=== PATIENT | female | born 1965 | race Caucasian/White ===

== ENCOUNTER 2020-11-12 11:50 | Day surgery (SDC) | payer BC, SELFPAY ==
[2020-11-12] VITALS (17 sets, daily range): BP systolic 121–165; BP diastolic 70–93; PULSE 74–92; RESP 14–19; TEMP 36.7–36.9; O2SAT 93–100; BMI 36.8
--- NOTE | 2020-11-12 | IR_ITS ---
APPROVED REPORT Patient Location: Inpatient PROCEDURES Selective coronary angiogram Left heart catheterization Left ventriculogram Bilateral selective renal angiogram INDICATION Unstable angina, Malignant hypertension, Suspected renovascular hypertension Informed consent was obtained prior to the procedure. COMPLICATIONS NONE Estimated Blood Loss: LESS THAN 10 ML TECHNIQUE One percent lidocaine used to anesthetize the right anterior aspect of the wrist. The right radial artery was accessed via the Seldinger technique. A 6 [place] sheath was placed in the right radial artery. 2.5 mg of verapamil, 800 mcg of nitroglycerin, 1mg Lidocaine and 5000 U Heparin were given through the arterial sheath. The trap catheter was also used to perform left heart catheterization, left ventriculogram and selective coronary angiogram. The trap catheter was then used to selectively engage each renal artery and perform selective angiography. This was undertaken given patient's malignant hypertension with systolic blood pressures over 210/120 ANGIOGRAPHIC RESULTS The left main artery Normal The left anterior descending artery Normal The circumflex artery Normal The right coronary artery Dominant normal The GIANG ventriculogram reveals Not performed The left ventricular end-diastolic pressure Not measured Right renal artery singular normal Left renal artery singular normal IMPRESSION Normal coronary arteries Normal bilateral renal arteries PLAN 1. Recommend evaluation of malignant hypertension with tachycardia. Given patient's chronic anemia would recommend evaluation for neuroendocrine tumors causing secondary hypertension with tachycardia. 2. Start or increase beta-blockers in order to control heart rate and blood pressure Electronically signed by : Froy Spencer, 11/12/2020 15:04:35
--- NOTE | 2020-11-12 11:39 | ECG_ITS ---
APPROVED REPORT Exam: Resting ECG HR:86 bpm ECG Measurements Heart Rate 86 AXES NM 164 P 66 QRSd 84 QRS 32 QT 368 T 51 QTc 440 Conclusion Normal sinus rhythm Normal ECG Electronically signed by : Yousif Chun, 11/12/2020 19:36:17
--- NOTE | 2020-11-12 11:54 | XR_ITS ---
PROCEDURE: XR CHEST PORTABLE CLINICAL HISTORY: chest pain COMPARISON: No exams were available for comparison FINDINGS: The cardiomediastinal silhouette and pulmonary vascularity are within normal limits. The lungs are clear without infiltrates, suspicious nodules, or pleural effusions. No acute bony abnormalities. IMPRESSION: No acute findings. Dictated by: Leland Aguirre MD 11/12/2020 12:32 Leland Aguirre MD in [place] 11/12/2020 12:32
--- NOTE | 2020-11-12 11:55 | PC.NURSE ---
pt took 324mg of ASA just prior to coming to ER
--- NOTE | 2020-11-12 12:00 | PC.NURSE ---
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
[2020-11-12 12:09] LABS: Eosinophils # 0.2 K/mm3 (0.0-0.4); Mean Corpuscular Volume 72.2 fl (81-99); Monocytes # 0.5 K/mm3 (0.1-1.0)
[2020-11-12 12:10] LABS: Chloride 108 mmol/L (98-107); Sodium 141 mmol/L (136-145)
[2020-11-12 12:11] LABS: Basophils % 0.4 % (0.1-2.0); Eosinophils % 2.1 % (0.1-12.0); Hemoglobin 8.8 g/dL (12.2-16.2); Lymphocytes # 2.3 K/mm3 (0.7-4.5); Mean Corpuscular HGB Conc 28.5 g/dL (31.8-35.4); Mean Corpuscular Hemoglobin 20.6 pg (27.0-31.2); Mean Platelet Volume 11.8 fl (7.4-10.4); Monocytes % 5.5 % (1.7-9.3); Neutrophils # 5.3 K/mm3 (1.8-7.8); Platelet Count 541 K/mm3 (142-424); Red Blood Count 4.29 M/mm3 (4.20-5.40); Red Cell Distribution Width 17.7 % (11.5-17.5); White Blood Count 8.3 K/mm3 (4.8-10.8)
[2020-11-12 12:13] LABS: Blood Urea Nitrogen 19 mg/dl (7-17); Creatinine Clearance Estimated 105 mL/min (50-200); Estimated Glomerular Filt Rate 65 ml/min (>60); GFR (African American) 79 ML/MIN (>60)
[2020-11-12 12:14] LABS: Calcium 9.3 mg/dl (8.4-10.2); Carbon Dioxide 25 mmol/L (22.0-30.0); Glucose 87 mg/dl (74-100)
[2020-11-12 12:25] LABS: Anion Gap 11.9 mEq/L (5-15); Potassium 3.9 mmoL/L (3.5-5.1)
[2020-11-12 12:27] LABS: Troponin I < 0.01 ng/ml (0.00-0.034)
--- NOTE | 2020-11-12 12:30 | PC.NURSE ---
Spoke with Eliceo Salazar in cardiology. Advises he will be over to see patient
[2020-11-12 12:31] LABS: NT Pro Brain Natriuretic Pep. 112 pg/mL (0-125)
--- NOTE | 2020-11-12 12:33 | PC.NURSE ---
Eliceo Salazar at bedside.
[2020-11-12 12:34] LABS: Coronavirus 19 IgG Antibody Negative (Negative); Coronavirus 19 IgM Antibody Negative (Negative)
[2020-11-12 12:37] LABS: Activated Partial Thrombo Time 22.2 seconds (23.6-34.0); Prothrombin Time 11.1 seconds (9.4-11.8)
--- NOTE | 2020-11-12 12:51 | HMH.CNCARD ---
History of Present Illness Consult date: 11/12/20 Consult reason: chest pain Chief complaint: CP Additional Medical History:: 1. Chronic anemia with history of EGD and colonoscopy, 09/2019, showing no etiology. A. Chronic iron therapy 2. Strong family history of early coronary disease in her mother, mother sister, and her brother in their 50s and 60s 3. Hypertension 4. History of gastric bypass, 2004 History of present illness: 55-year-old white female with chronic anemia and history of gastric bypass in 2004 with 120 pound weight loss at that time presented to the emergency department for chest pain evaluation. Patient relates 4 to 6 weeks of increasing substernal chest discomfort unrelated to activity or eating. Patient did see her primary care physician with her blood pressure noted to be elevated and an increase in her medications made. Over the last 3 days patient's chest discomfort has increased in frequency, intensity and duration with associated fatigue. She is also noted radiation of symptoms up into her neck. She had an appointment with us tomorrow but due to the change in symptoms she sought evaluation in the ER. Initial troponin is normal and EKG showed is sinus rhythm with no acute ST segment changes. Cardiology consulted for evaluation and recommendations. Patient relates a significant family history of early heart disease in her brother who at age 54, her mother who had bypass at age 60 and her mother's sister who had 2 separate bypasses in her 60s. Patient is a non-smoker and nondiabetic. She has been treated for high blood pressure for many years. Cholesterol status unknown [facility] History *Have you ever received a pneumonia vaccine?: No *Have you received a flu vaccine this season?: No - *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 *Occupational Status:: employed *Travel in the last 8 weeks: Inside the [place] Family Hx:: Coronary Artery Disease Meds Home Medications Medication Instructions Recorded Confirmed Type Aspirin 81 mg PO DAILY 11/12/20 11/12/20 History Cetirizine HCl 10 mg PO DAILY 11/12/20 11/12/20 History Ibuprofen/Famotidine [Duexis 1 tab PO TID 11/12/20 11/12/20 History 800-26.6 mg Tablet] lisinopriL [Lisinopril 30mg Tablet] 30 mg PO DAILY 11/12/20 11/12/20 History Allergies Allergy/AdvReac Type Severity Reaction Status Date / Time codeine Allergy Verified 11/12/20 11:54 Exam Vital signs and Labs for Last 24 Hours: Temp Pulse Resp BP Pulse Ox 98.5 F 90 14 162/75 H 97 11/12/20 11:51 11/12/20 12:20 11/12/20 12:20 11/12/20 12:20 11/12/20 12:20 Laboratory Results - last 24 hr 11/12/20 11:50: WBC 8.3, RBC 4.29, Hgb 8.8 L, Hct 31.0 L, MCV 72.2 L, MCH 20.6 L, MCHC 28.5 L, RDW 17.7 H, Plt Count 541 H, MPV 11.8 H, Neut % (Auto) 64.0, Lymph % (Auto) 28.0, [place] % (Auto) 5.5, Eos % (Auto) 2.1, Baso % (Auto) 0.4, Neut # (Auto) 5.3, Lymph # (Auto) 2.3, [place] # (Auto) 0.5, Eos # (Auto) 0.2, Baso # (Auto) 0.0 11/12/20 11:50: Sodium 141, Potassium 3.9, Chloride 108 H, Carbon Dioxide 25, Anion Gap 11.9, BUN 19 H, Creatinine 0.90, Estimated Creat Clear 105, Estimated GFR 65, Est GFR ( Amer) 79, Glucose 87, Calcium 9.3, Troponin I < 0.01 11/12/20 11:50: SARS-CoV-2 IgG Ab (Rapid) Negative, SARS-CoV-2 IgM Ab (Rapid) Negative 11/12/20 11:50: PT 11.1, INR 1.00, APTT 22.2 L 11/12/20 11:50: NT-Pro-B Natriuret Pep 112 I & O for Last 24 hours: Intake & Output 11/10/20 11/11/20 11/12/20 11/13/20 11:59 11:59 11:59 11:59 Weight 208 lb - Constitutional no acute distress - *Routine HEENT Exam Head: Present: normocephalic Eye: Present: EOMI, PERRL ENT: Present: mucous membranes moist - *Routine Neck Exam Present: supple. Absent: lymphadenopathy - *Routine Respiratory Exam Present: CTA bilaterally - *Routine Cardiovascular Exam Present: RRR - *Routine Abdominal Exam Present: soft, normoactive bowel sounds. Absent: tenderness - *Routine Extremities Exam Absent:
--- NOTE | 2020-11-12 12:56 | PC.NURSE ---
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
--- NOTE | 2020-11-12 13:04 | PC.NURSE ---
after NTG chest pain and back pain went completely away Eliceo quevedo
--- NOTE | 2020-11-12 13:06 | PC.NURSE ---
Spoke with Eliceo, advised pt would be done as outpt procedure.
--- NOTE | 2020-11-12 13:17 | HMH.EDCP ---
ED Disposition Clinical Impression: Unstable angina, Chronic anemia Disposition: Still a Patient Condition on Discharge: Serious - Critical Care Critical Care Time: No Attestation: On 11/12/20, the high probability of a clinically significant, sudden or life threatening deterioration of the following system(s) required my full and direct attention, intervention and personal management. The time I documented below is in addition to time spent performing reported procedures but includes the following listed in this critical care notation. Medical Decision Making - Medical Records Medical records reviewed: Yes: I reviewed the patient's medical records. - Ramiro Inquiry Pt receiving controlled substance: No Vital Signs: 11/12/20 11:50 11/12/20 11:51 11/12/20 12:20 Temperature 98.5 F Temperature Source Oral Pulse Rate [Right] 81 84 90 Respiratory Rate 14 16 14 Blood Pressure [Right Arm] 155/91 H 165/88 H 162/75 H Blood Pressure Mean [Right Arm] 112 113 104 Blood Pressure Source [Right Arm] Automatic Cuff Automatic Cuff Automatic Cuff Blood Pressure Position [Right Arm] Sitting Sitting Sitting 02 Sat by Pulse Oximetry 97 98 97 Oxygen Delivery Method Room Air Room Air 11/12/20 12:58 11/12/20 13:00 Temperature Temperature Source Pulse Rate [Right] 92 H 83 Respiratory Rate 18 18 Blood Pressure [Right Arm] 147/86 H 143/81 H Blood Pressure Mean [Right Arm] 106 101 Blood Pressure Source [Right Arm] Automatic Cuff Automatic Cuff Blood Pressure Position [Right Arm] Supine Sitting 02 Sat by Pulse Oximetry 94 L 96 Oxygen Delivery Method Room Air Room Air - Lab Data Lab Results 11/12/20 11:50: WBC 8.3, RBC 4.29, Hgb 8.8 L, Hct 31.0 L, MCV 72.2 L, MCH 20.6 L, MCHC 28.5 L, RDW 17.7 H, Plt Count 541 H, MPV 11.8 H, Neut % (Auto) 64.0, Lymph % (Auto) 28.0, [place] % (Auto) 5.5, Eos % (Auto) 2.1, Baso % (Auto) 0.4, Neut # (Auto) 5.3, Lymph # (Auto) 2.3, [place] # (Auto) 0.5, Eos # (Auto) 0.2, Baso # (Auto) 0.0 11/12/20 11:50: Sodium 141, Potassium 3.9, Chloride 108 H, Carbon Dioxide 25, Anion Gap 11.9, BUN 19 H, Creatinine 0.90, Estimated Creat Clear 105, Estimated GFR 65, Est GFR ( Amer) 79, Glucose 87, Calcium 9.3, Troponin I < 0.01 11/12/20 11:50: SARS-CoV-2 IgG Ab (Rapid) Negative, SARS-CoV-2 IgM Ab (Rapid) Negative 11/12/20 11:50: PT 11.1, INR 1.00, APTT 22.2 L 11/12/20 11:50: NT-Pro-B Natriuret Pep 112 Result diagrams: 11/12/20 11:50 11/12/20 11:50 Orders (Tests/Meds): ED MEDICATIONS Generic Name Dose Route Start Last Admin Trade Name Freq PRN Reason Stop Dose Admin Fentanyl Citrate 25 mcg 11/12/20 13:06 Fentanyl 250mcg/5ml Vial IV 11/13/20 13:06 Q3MINP PRN Moderate to Severe Pain Fentanyl Citrate 50 mcg 11/12/20 13:06 Fentanyl 250mcg/5ml Vial IV 11/13/20 13:06 Q3MINP PRN Moderate to Severe Pain Flumazenil 0.2 mg 11/12/20 13:06 Flumazenil 0.1mg/Ml 5ml Vial IV 11/12/20 23:00 NEEDED PRN Sedation Midazolam HCl 1 mg 11/12/20 13:06 Midazolam 2mg/2ml Vial IV 11/13/20 13:06 Q3MINP PRN Sedation Midazolam HCl 1 mg 11/12/20 13:06 Midazolam Hcl 1mg/1ml 5ml Vial IV 11/13/20 13:06 Q3MINP PRN Sedation Naloxone HCl 0.4 mg 11/12/20 13:06 Naloxone 0.4mg/Ml Vial IV 11/13/20 13:06 Q5MINP PRN Decreased Respirations Discontinued Medications Generic Name Dose Route Start Last Admin Trade Name Freq PRN Reason Stop Dose Admin Nitroglycerin 0.4 mg 11/12/20 12:48 11/12/20 12:55 Nitroglycerin 0.4mg Sl Tablet SL 11/12/20 12:49 0.4 mg ONCE ONE Administration ORDERS Category Date Time Status Covid-19 IgG/IgM ([facility]) Routine Lab 11/12/20 13:05 Ordered Troponin I Q3H Lab 11/12/20 15:00 Ordered Troponin I Q3H Lab 11/12/20 18:00 Ordered - Radiology Data #1 Image(s): Chest Image Reviewed: Yes I reviewed the patient's radiology results, Yes I discussed the image results w/the ra
--- NOTE | 2020-11-12 13:26 | PC.NURSE ---
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
[2020-11-12 13:42] LABS: Chol/HDL Ratio 4.1 (1-3.5); Cholesterol 239 mg/dl (140-200); HDL Cholesterol 59 mg/dl (40-60); Triglycerides 198 mg/dl (30-150); VLDL Cholesterol 40 mg/dL (0-40)
[2020-11-12 13:53] LABS: Direct LDL Cholesterol 127.04 mg/dL (100-129)
== END 2020-11-12 18:03 | disposition home or self-care (01) ==
LOC: ER 13:09 → CATHLAB 13:12
PROVIDERS: Physician Assistant; Emergency Provider Emergency Medicine; PCP Internal Medicine; Visit Provider Internal Medicine
DX: I25.110 Atherosclerotic heart disease of native coronary artery with unstable angina pectoris (principal); Z82.49 Family history of ischemic heart disease and other diseases of the circulatory system; Z79.899 Other long term (current) drug therapy; I15.0 Renovascular hypertension
CPT/HCPCS: 36252; 71045; 80048; 80061; 83880; 84484; 85025; 85610; 85730; 86328; 93005; 93458; 99152; 99284; C1725; C1769; J1644; Q9967

== ENCOUNTER → 2020-11-14 13:17 | Outpatient (CLI) | payer BC, SELFPAY ==
[2020-11-14 13:45] LABS: Basophils % 0.5 % (0.1-2.0); Eosinophils # 0.2 K/mm3 (0.0-0.4); Eosinophils % 2.8 % (0.1-12.0); Hematocrit 30.9 % (37.0-47.0); Lymphocytes # 2.7 K/mm3 (0.7-4.5); Mean Corpuscular HGB Conc 29.1 g/dL (31.8-35.4); Mean Corpuscular Hemoglobin 20.2 pg (27.0-31.2); Mean Corpuscular Volume 69.6 fl (81-99); Mean Platelet Volume 7.4 fl (7.4-10.4); Monocytes # 0.4 K/mm3 (0.1-1.0); Monocytes % 4.5 % (1.7-9.3); Neutrophils # 5.3 K/mm3 (1.8-7.8); Neutrophils % 61.2 % (37.0-80.0); Platelet Count 544 K/mm3 (142-424); Red Blood Count 4.43 M/mm3 (4.20-5.40); Red Cell Distribution Width 17.7 % (11.5-17.5); White Blood Count 8.7 K/mm3 (4.8-10.8)
[2020-11-14 15:35] LABS: Alanine Aminotransferase 14 U/L (12-78); Albumin Level 4.5 g/dl (3.5-5.0); Albumin/Globulin Ratio 1.3 (1.1-1.8); Alkaline Phosphatase 142 U/L (38-126); Anion Gap 14.1 mEq/L (5-15); Aspartate Amino Transferase 26 U/L (14-36); Bilirubin,Total 0.4 mg/dl (0.2-1.3); Blood Urea Nitrogen 15 mg/dl (7-17); Calcium 9.6 mg/dl (8.4-10.2); Carbon Dioxide 27 mmol/L (22.0-30.0); Chloride 103 mmol/L (98-107); Estimated Glomerular Filt Rate 74 ml/min (>60); GFR (African American) 90 ML/MIN (>60); Globulin 3.4 g/dL (1.3-3.2); Glucose 87 mg/dl (74-100); Iron 20 ug/dL (37-170); Potassium 4.1 mmoL/L (3.5-5.1); Sodium 140 mmol/L (136-145); Total Protein,Serum 7.9 g/dl (6.3-8.2)
[2020-11-14 15:45] LABS: Total Iron Binding Capacity 527 ug/dL (265-497)
[2020-11-14 15:52] LABS: Free Thyroxine Index 3.4 ug/dL (5.93-13.13); T4 (Thyroxine) 10.4 ug/dl (5.53-11.0); Triiodothryronine (T3) Uptake 33 % (23.5-40.5)
[2020-11-14 16:06] LABS: Thyroid Stimulating Hormone 0.99 uIU/mL (0.465-4.68)
[2020-11-14 16:11] LABS: Ferritin 6.19 ng/ml (11.1-264)
[2020-11-14 16:25] LABS: Vitamin B12 272 pg/mL (239-931)
[2020-11-14 16:34] LABS: Activated Partial Thrombo Time 23.3 seconds (23.6-34.0); INR 1.02 (0.9-1.1); Prothrombin Time 11.3 seconds (9.4-11.8)
[2020-11-19 20:07] LABS: Vitamin E Alpha Tocopherol 10.8 mg/L (7.0-25.1)
[2020-11-20 12:05] LABS: Vitamin E Gamma Tocopherol 1.2 mg/L (0.5-5.5)
== END ==
PROVIDERS: Visit Provider Internal Medicine Adolescent Medicine
DX: D50.9 Iron deficiency anemia, unspecified (principal); Z98.84 Bariatric surgery status
CPT/HCPCS: 36415; 80053; 82607; 82728; 83540; 83550; 84436; 84443; 84446; 84479; 84597; 85025; 85610; 85730

== ENCOUNTER → 2020-11-15 11:04 | Outpatient (CLI) | payer BC, SELFPAY ==
[2020-11-27 12:54] LABS: Vitamin K1 0.45 ng/mL (0.13-1.88)
== END ==
PROVIDERS: Visit Provider Internal Medicine Adolescent Medicine
DX: D50.9 Iron deficiency anemia, unspecified (principal); Z98.84 Bariatric surgery status
CPT/HCPCS: 84597

== ENCOUNTER → 2020-11-29 11:17 | Outpatient (CLI) | payer BC, SELFPAY ==
--- NOTE | 2020-11-29 11:24 | CA_ITS ---
APPROVED REPORT EXAM: Comprehensive 2D, Doppler, and color-flow Echocardiogram Unemployment Benefits Claims Taker: Loyda Hendrickson RVT Ht: 5 ft 3 in Wt: 215lbs BSA: 1.99 BP: 165/98 mmHg Indications: SOA,CP,HTN 2D Dimensions LVOT 1.94 cm (M/F) 1.5-2.5 M-Mode Dimensions RVDd 3.00 cm (0.9-2.6) LA Diam 4.43 cm (1.9-4.0) LVDd 4.58 cm (3.5-5.7) Ao Diam 2.60 cm (2.0-3.7) LVDs 2.79 cm (3.5-5.7) IVSd 0.97 cm (0.6-1.1) PWd 0.72 cm (0.6-1.1) EF (Teich) 69.60% FS 39.10% EDV (Teich) 96.30 mL ESV (Teich) 29.30 mL LV Diastology E Decel Time 227.00 (160-240 msec) E/A Ratio 1.0 MED E' 8.90 (< 7 cm/sec) E'/MED E' Ratio 11.30 (>14) LAT E' 8.30 (<10 cm/sec) E/LAT E' Ratio 12.12 (>14) Mitral Valve MV E Max Denys. 101.00 (40-130 cm/s) MV A Velocity 101.00 (40-130 cm/s) E/A Ratio 0.99 MV Decel. Time 227.00 (160-240 ms) MV PHT 66.00 ms Pulmonary Valve PV Peak Velocity 80.00 (50-150 cm/s) Tricuspid Valve TR P. Velocity 225.00 cm/s Left Ventricle Left atrium is mildly enlarged, left ventricle is normal size, mild concentric left ventricular hypertrophy, visually estimated ejection fraction 55% with no regional wall motion abnormality, grade 1 diastolic dysfunction seen without tissue Doppler evidence of raise left atrial pressure. Right Ventricle Right atrium and right ventricle are mildly enlarged with normal contractility. Aortic Valve Aortic valve is grossly normal, there is no aortic stenosis or aortic insufficiency. Mitral Valve Mitral valve is grossly normal, there is trace mitral regurgitation. Tricuspid Valve Tricuspid valve is grossly normal, there is trace tricuspid regurgitation, tricuspid regurgitation jet velocity is inadequate for calculation of the right ventricular systolic pressure. Pulmonic Valve Pulmonic valve is poorly visualized. Great Vessels Aortic root is normal size. Pericardium No significant pericardial effusion noted. Conclusion 1. Mild biatrial enlargement, normal left ventricular size, mild concentric left ventricular hypertrophy, visually estimated ejection fraction 55% with no regional wall motion abnormality, grade 1 diastolic dysfunction seen without tissue Doppler evidence of raise left atrial pressure. 2. Mildly enlarged right ventricle with normal contractility. 3. Trace mitral and tricuspid regurgitation. 4. No significant pericardial effusion noted. Electronically signed by : Jet Young, 11/30/2020 13:59:18
== END ==
PROVIDERS: PCP Internal Medicine Adolescent Medicine; Visit Provider Urology
DX: I10 Essential (primary) hypertension (principal)
CPT/HCPCS: 93306

== ENCOUNTER → 2021-05-02 09:16 | Outpatient (CLI) | payer BC, SELFPAY | PROVIDERS: PCP Internal Medicine Adolescent Medicine; Visit Provider Internal Medicine Adolescent Medicine | DX: G47.33 Obstructive sleep apnea (adult) (pediatric) (principal); I10 Essential (primary) hypertension; R06.83 Snoring | CPT/HCPCS: G0399 ==

== ENCOUNTER 2021-05-17 14:00 | Outpatient (RCR) | payer BC, SELFPAY | END 2021-05-17 14:05 | disposition home or self-care (01) | LOC: OT 14:00 | PROVIDERS: PCP Internal Medicine Adolescent Medicine; Visit Provider Internal Medicine Adolescent Medicine | DX: M25.512 Pain in left shoulder (principal) | CPT/HCPCS: 97014; 97110; 97140; 97164; 97165; 97530; G0283 ==

== ENCOUNTER → 2021-07-24 09:58 | Outpatient (CLI) | payer BC, SELFPAY | PROVIDERS: PCP Internal Medicine Adolescent Medicine; Visit Provider Nurse Practitioner | DX: Z20.822 Contact with and (suspected) exposure to COVID-19 (principal) | CPT/HCPCS: C9803; U0003; U0005 ==

== ENCOUNTER → 2021-07-29 10:02 | Outpatient (CLI) | payer BC, SELFPAY ==
[2021-07-29 10:14] LABS: Basophils # 0.1 K/mm3 (0-0.2); Basophils % 0.6 % (0.1-2.0); Eosinophils # 0.2 K/mm3 (0.0-0.4); Eosinophils % 2.9 % (0.1-12.0); Hematocrit 38.1 % (37.0-47.0); Hemoglobin 11.6 g/dL (12.2-16.2); Lymphocytes % 26.8 % (10-50); Mean Corpuscular HGB Conc 30.5 g/dL (31.8-35.4); Mean Corpuscular Hemoglobin 25.1 pg (27.0-31.2); Mean Corpuscular Volume 82.3 fl (81-99); Mean Platelet Volume 8.1 fl (7.4-10.4); Monocytes # 0.5 K/mm3 (0.1-1.0); Monocytes % 5.9 % (1.7-9.3); Neutrophils # 4.8 K/mm3 (1.8-7.8); Neutrophils % 63.8 % (37.0-80.0); Platelet Count 469 K/mm3 (142-424); Red Blood Count 4.63 M/mm3 (4.20-5.40); Red Cell Distribution Width 17.2 % (11.5-17.5); White Blood Count 7.5 K/mm3 (4.8-10.8)
[2021-07-29 11:16] LABS: Chloride 107 mmol/L (98-107); Potassium 4.1 mmoL/L (3.5-5.1); Sodium 144 mmol/L (136-145)
[2021-07-29 11:19] LABS: Alanine Aminotransferase 17 U/L (12-78); Albumin Level 3.9 g/dl (3.5-5.0); Albumin/Globulin Ratio 1.3 (1.1-1.8); Alkaline Phosphatase 106 U/L (38-126); Anion Gap 12.1 mEq/L (5-15); Aspartate Amino Transferase 26 U/L (14-36); Blood Urea Nitrogen 13 mg/dl (7-17); Calcium 8.8 mg/dl (8.4-10.2); Carbon Dioxide 29 mmol/L (22.0-30.0); Cholesterol 208 mg/dl (140-200); Estimated Glomerular Filt Rate 104 ml/min (>60); GFR (African American) 126 ML/MIN (>60); Glucose 93 mg/dl (74-100); Total Protein,Serum 6.9 g/dl (6.3-8.2); Triglycerides 143 mg/dl (30-150); VLDL Cholesterol 29 mg/dL (0-40)
[2021-07-29 11:20] LABS: Chol/HDL Ratio 3.6 (1-3.5); HDL Cholesterol 57 mg/dl (40-60)
[2021-07-29 11:24] LABS: Bilirubin,Total 0.1 mg/dl (0.2-1.3)
[2021-07-29 11:30] LABS: Direct LDL Cholesterol 114.78 mg/dL (100-129)
[2021-07-29 11:58] LABS: Hemoglobin A1C 6.1 % (4.0-6.0)
== END ==
PROVIDERS: Visit Provider Internal Medicine Adolescent Medicine
DX: Z00.00 Encounter for general adult medical examination without abnormal findings (principal); I10 Essential (primary) hypertension; D50.9 Iron deficiency anemia, unspecified
CPT/HCPCS: 36415; 80053; 80061; 83036; 85025

== ENCOUNTER → 2021-07-31 09:22 | Outpatient (CLI) | payer BC, SELFPAY | PROVIDERS: PCP Internal Medicine Adolescent Medicine; Visit Provider Nurse Practitioner | DX: Z20.822 Contact with and (suspected) exposure to COVID-19 (principal) | CPT/HCPCS: C9803; U0003; U0005 ==

== ENCOUNTER → 2021-09-02 08:32 | Outpatient (CLI) | payer BC, SELFPAY ==
--- NOTE | 2021-09-02 08:35 | MM_ITS ---
PROCEDURE INFORMATION: Exam: MG Bilateral Screening 3D Mammography Exam date and time: 09/02/2021 8:35 AM Age: 55 years old Clinical indication: Screening mammogram TECHNIQUE: Imaging protocol: Bilateral screening tomosynthesis and 2D mammography including computer-aided detection (CAD) when performed. COMPARISON: 1. MG MAMMO SCREENING DIGITAL TOMOSYNTHESIS BILATERAL W CAD 12/08/2019 10:27 AM 2. MG MAMMO SCREENING DIGITAL TOMOSYNTHESIS BILATERAL W CAD 05/11/2018 9:03 AM FINDINGS: MAMMOGRAPHY: Breast composition: There are scattered areas of fibroglandular density. Mass: None. Architectural distortion: No new or suspicious architectural distortion. Calcifications: No new or suspicious calcifications are present Asymmetric density: No new or suspicious asymmetric density is present Skin thickening: None. Axillary adenopathy: None. IMPRESSION: No mammographic evidence of malignancy. Recommend annual screening mammography unless otherwise clinically indicated. ASSESSMENT: BI-RADS category 1: Negative
== END ==
PROVIDERS: PCP Internal Medicine Adolescent Medicine; Visit Provider Internal Medicine Adolescent Medicine
DX: Z12.31 Encounter for screening mammogram for malignant neoplasm of breast (principal)
CPT/HCPCS: 77063; 77067

== ENCOUNTER → 2022-09-08 12:34 | Outpatient (CLI) | payer BC, SELFPAY ==
--- NOTE | 2022-09-08 12:38 | XR_ITS ---
FINAL REPORT CLINICAL HISTORY: chest pain COMPARISON: 11/12/2018 FINDINGS: 2 views of the chest were obtained . The heart is normal in size. The mediastinum is within normal limits. The lungs are clear. There is no pneumothorax. Osseous structures are unremarkable. IMPRESSION: No acute cardiopulmonary process. Reviewed, Interpreted and Dictated by Christian Talbot MD Transcribed by Betty Walker Authenticated and [facility]
[2022-09-08 13:54] LABS: D-Dimer 0.64 ug/mL (0.0-0.5)
== END ==
PROVIDERS: Nurse Practitioner Family; PCP Internal Medicine Adolescent Medicine; Visit Provider Internal Medicine
DX: R07.89 Other chest pain (principal)
CPT/HCPCS: 36415; 71046; 85378

== ENCOUNTER → 2022-09-16 12:30 | Outpatient (CLI) | payer BC, SELFPAY ==
--- NOTE | 2022-09-16 12:30 | CT_ITS ---
FINAL REPORT TECHNIQUE: Thin section axial CT images were obtained from the lung apices to the upper abdomen. IV contrast was administered. MIP 3-D reformats were obtained. This study was performed with techniques to keep radiation doses as low as reasonably achievable (ALARA). Individualized dose reduction techniques using automated exposure control or adjustment of mA and/or kV according to the patient's size were employed. CLINICAL HISTORY: chest pain FINDINGS: The heart size is normal. There is no adenopathy. There is no filling defect to suggest PE. There is no aortic dissection. There is no pericardial effusion. There is no suspicious infiltrate or nodule. No pleural effusion. Limited images of the upper abdomen demonstrate postoperative changes from gastric bypass. IMPRESSION: No pulmonary embolism or aortic dissection. Reviewed, Interpreted and Dictated by Junior Johnson III, MD Transcribed by Sean Basurto Authenticated and [facility]
[2022-09-16 13:08] LABS: Blood Urea Nitrogen 14 mg/dl (7-17); Estimated Glomerular Filt Rate 74 ml/min (>60); GFR (African American) 90 ML/MIN (>60)
== END ==
PROVIDERS: PCP Internal Medicine Adolescent Medicine; Visit Provider Nurse Practitioner Family
DX: R07.89 Other chest pain (principal); R00.1 Bradycardia, unspecified; I10 Essential (primary) hypertension; R94.31 Abnormal electrocardiogram [ECG] [EKG]; Z82.49 Family history of ischemic heart disease and other diseases of the circulatory system
CPT/HCPCS: 36415; 71275; 82565; 84520; Q9967

== ENCOUNTER 2022-11-15 09:41 | Emergency (ER) | payer BC, SELFPAY ==
[2022-11-15 10:09] VITALS: BP 146/84; PULSE 84; RESP 16; TEMP 36.8; O2SAT 97; BMI 38.9
[2022-11-15 10:18] LABS: UTC Influenza A Antigen Negative (Negative); UTC Influenza B Antigen Negative (Negative)
[2022-11-15 10:25] LABS: Adenovirus,PCR Not Detected (NotDetected); Bordetella Pertussis Not Detected (NotDetected); Chlamydophila Pneumoniae, PCR Not Detected (NotDetected); Coronavirus 19, PCR Not Detected (NotDetected); Coronavirus 229E Not Detected (NotDetected); Coronavirus NL63 Not Detected (NotDetected); Coronavirus OC43 Not Detected (NotDetected); Coronovirus HKU1,PCR Not Detected (NotDetected); Human Metapneumovirus Not Detected (NotDetected); Influenza A, PCR Not Detected (NotDetected); Influenza AH1, 2009 Not Detected (NotDetected); Influenza AH1, PCR Not Detected (NotDetected); Influenza AH3,PCR Not Detected (NotDetected); Influenza B, PCR Not Detected (NotDetected); Mycoplasma Pneumoniae, PCR Not Detected (NotDetected); Parainfluenza 1, PCR Not Detected (NotDetected); Parainfluenza 2, PCR Not Detected (NotDetected); Parainfluenza 3, PCR Not Detected (NotDetected); Parainfluenza 4, PCR Not Detected (NotDetected); Respiratory Syncytial Virus Not Detected (NotDetected)
--- NOTE | 2022-11-15 10:25 | EXP.UTC ---
Discharge Plan Disposition Patient Disposition: Home, Self-Care Condition: Good Prescriptions Prescriptions: No Action mecobalamin (vitamin B12) 10,000 mcg recon soln IM .Q2 weeks ascorbate calcium (vitamin C) 500 mg tablet 500 mg PO DAILY multivitamin with iron [Daily Vitamin with Iron] Tablet 1 tab PO DAILY bisoprolol fumarate 5 mg tablet 5 mg PO DAILY Qty: 90 3RF cetirizine 10 MG tablet 10 mg PO DAILY ibuprofen-famotidine 1 EACH tablet 1 tab PO TID lisinopril 30 mg tablet 40 mg PO DAILY Referrals Follow up/Referrals: Yousif Chun MD [Primary Care Provider] - See instructions Activity Restrictions/Add. Instructions Additional Instructions/Restrictions: No sign of a bacterial infection. Likely viral. Viruses can take 7-14 days to run their course. Nasal saline and bulb syringe or nose Brigid to remove nasal drainage to help with nasal congestion. Hard to eat, drink, sleep with nasal congestion so important to keep this cleaned out. Monitor temp. Tylenol or Motrin as needed for pain or fever Encourage fluids, water, Gatorade, Powerade, Pedialyte if infant/toddler/child Warm salt water gargles Warm fluids Sore throat lozenges Sleep elevated Humidifier/vaporizer Follow-up immediately for new or worsening symptoms or no noticeable improvement over the next 48-72 hours. Clinical Impressions Clinical Impression: Upper respiratory disease Instructions Patient Instructions: DI for Viral Upper Respiratory Infection -- Adult Discharge ED Provider: [place] ([facility])Sheldon [facility] [place] HPI General Stated complaint: Sore throat sneezing cough headache congestion Source of Information: Patient Time Seen by Provider: 11/15/22 10:25 Description of Symptoms (Recalled from Triage Doc. by RN): PT C/O COUGH, CHILLS, BODY ACHES, AND SNEEZING THAT STARTED 3 DAYS AGO HEENT Symptoms (Recalled from RN notes): No Resp Symptoms (Recalled from RN notes): Yes Skin Symptoms (Recalled from RN notes): No MS Symptoms (Recalled from RN notes): No Functional Status (Recalled from RN notes): WNL History of Present Illness Provider Complaint: 57 yr old female presents for chills,cough, body aches and sneezing for three days Related Data Home Medications Medication Instructions Recorded Confirmed cetirizine 10 mg tablet 10 mg PO DAILY Allergy symptoms 11/12/20 07/30/22 ibuprofen 800 mg-famotidine 26.6 1 tab PO TID Pain 11/12/20 07/30/22 mg tablet ascorbate calcium (vitamin C) 500 500 mg PO DAILY 11/26/20 07/30/22 mg tablet lisinopril 30 mg tablet 40 mg PO DAILY blood pressure 11/26/20 07/30/22 mecobalamin (vitamin B12) 10,000 mcg IM .Q2 weeks 11/26/20 07/30/22 mcg solution for injection multivitamin with iron (Daily 1 tab PO DAILY 11/26/20 07/30/22 Vitamin with Iron tablet) Previous Rx's Medication Instructions Recorded bisoprolol fumarate 5 mg tablet 5 mg PO DAILY #90 tabs 08/27/22 Allergies Allergy/AdvReac Type Severity Reaction Status Date / Time codeine Allergy Verified 07/30/22 13:21 Worker's Comp Is this a Worker's Comp case?: No [facility] Disclaimer: The information contained in this section may have been updated after the patient was seen, as this information can be updated by other users. 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
[2022-11-15 10:33] VITALS: BP 146/84; PULSE 84; RESP 16; TEMP 36.8; O2SAT 97
[2022-11-15 12:10] LABS: Rhinovirus/Enterovirus Detected (NotDetected)
== END 2022-11-15 10:37 | disposition home or self-care (01) ==
PROVIDERS: Emergency Provider Nurse Practitioner Family; PCP Internal Medicine Adolescent Medicine
DX: J06.9 Acute upper respiratory infection, unspecified (principal); B97.89 Other viral agents as the cause of diseases classified elsewhere
CPT/HCPCS: 87581; 87632; 87798; 87804; 99212; C9803; G0463; U0003; U0005

== ENCOUNTER → 2023-01-12 08:18 | Outpatient (CLI) | payer BC, SELFPAY ==
--- NOTE | 2023-01-12 08:22 | MM_ITS ---
PROCEDURE INFORMATION: Exam: MG Bilateral Screening 3D Mammography Exam date and time: 01/12/2023 8:17 AM Age: 57 years old Clinical indication: Screening examination TECHNIQUE: Imaging protocol: Bilateral Screening tomosynthesis and 2D mammography including computer-aided detection (CAD) when performed. COMPARISON: 1. MG MM DIG SCREENING MAMM BI W/CAD 09/02/2021 8:40 AM 2. MG MAMMO SCREENING DIGITAL TOMOSYNTHESIS BILATERAL W CAD 12/08/2019 10:27 AM FINDINGS: MAMMOGRAPHY: Breast composition: The breasts are almost entirely fatty. Mass: None. Architectural distortion: None. Calcifications: No suspicious calcifications. Asymmetric density: None. Skin thickening: None. Axillary adenopathy: None. IMPRESSION: No mammographic evidence of malignancy. Annual screening is recommended unless otherwise clinically indicated. ASSESSMENT: BI-RADS Category 1: Negative
== END ==
PROVIDERS: PCP Internal Medicine Adolescent Medicine; Visit Provider Internal Medicine Adolescent Medicine
DX: Z12.31 Encounter for screening mammogram for malignant neoplasm of breast (principal)
CPT/HCPCS: 77063; 77067

== ENCOUNTER → 2023-09-25 08:55 | Outpatient (CLI) | payer BC, SELFPAY | PROVIDERS: PCP Student in an Organized Health Care Education/Training Program; Visit Provider Student in an Organized Health Care Education/Training Program | DX: R82.90 Unspecified abnormal findings in urine (principal); B96.29 Other Escherichia coli [E. coli] as the cause of diseases classified elsewhere | CPT/HCPCS: 87086 ==

== ENCOUNTER 2023-11-23 20:32 | Outpatient (CLI) | payer BC, SELFPAY | END 2023-11-23 23:59 | LOC: LAB.DROPOF 20:32 | PROVIDERS: PCP Student in an Organized Health Care Education/Training Program; Visit Provider Student in an Organized Health Care Education/Training Program | DX: J02.9 Acute pharyngitis, unspecified (principal); R10.9 Unspecified abdominal pain; R05.8 Other specified cough; R09.81 Nasal congestion | CPT/HCPCS: 87635 ==

== ENCOUNTER 2024-01-15 13:54 | Outpatient (CLI) | payer BC, SELFPAY ==
--- NOTE | 2024-01-15 13:58 | MM_ITS ---
PROCEDURE INFORMATION: Exam: MG Bilateral Screening 3D Mammography Exam date and time: 01/15/2024 1:54 PM Age: 58 years old Clinical indication: Screening examination TECHNIQUE: Imaging protocol: Bilateral Screening tomosynthesis and 2D mammography including computer-aided detection (CAD) when performed. COMPARISON: 1. MG MM DIG SCREENING MAMM BI W/CAD 01/12/2023 8:17 AM 2. MG MM DIG SCREENING MAMM BI W/CAD 09/02/2021 8:40 AM FINDINGS: MAMMOGRAPHY: Breast composition: The breasts are almost entirely fatty. Mass: None. Architectural distortion: None. Calcifications: No suspicious calcifications. Asymmetric density: None. Skin thickening: None. Axillary adenopathy: None. IMPRESSION: No mammographic evidence of malignancy. Annual screening is recommended unless otherwise clinically indicated. ASSESSMENT: BI-RADS Category 1: Negative
== END 2024-01-15 23:59 ==
LOC: RAD 13:55
PROVIDERS: PCP Internal Medicine Adolescent Medicine; Visit Provider Internal Medicine Adolescent Medicine
DX: Z12.31 Encounter for screening mammogram for malignant neoplasm of breast (principal)
CPT/HCPCS: 77063; 77067

== ENCOUNTER 2024-01-19 09:30 | Outpatient (CLI) | payer BC, SELFPAY ==
--- NOTE | 2024-01-19 09:31 | XR_ITS ---
FINAL REPORT CLINICAL HISTORY: screening for osteoporosis COMPARISON: None FINDINGS: Using L1-4, the bone mineral density of the spine is 0.954 g/cm2, corresponding to T-score of -0.8 which is consistent with borderline osteopenia. Using the left hip, the bone mineral density of the femoral neck is 0.674 g/cm2, corresponding to a T-score of -1.6, consistent with osteopenia. Using the right hip, the bone mineral density of the femoral neck is 0.674 g/cm2, corresponding to a T-score of -1.6, consistent with osteopenia. FRAX 10 year fracture risk is 0.5% for a hip fracture and 6.9% for a major osteoporotic fracture. NOTE: T-score: Standard deviation compared with peak bone mass of young adult mean. *Following the recommendations of the International Society of Bone densitometry, classification of hip BMD is based on the lower of two T-scores; total hip or femoral neck. IMPRESSION: Diminished bone mineral density consistent with osteopenia. Reviewed, Interpreted and Dictated by Christian Talbot MD Transcribed by Tricia Ibarra Authenticated and [facility]
== END 2024-01-19 23:59 ==
LOC: RAD 09:31
PROVIDERS: PCP Internal Medicine Adolescent Medicine; Visit Provider Obstetrics & Gynecology
DX: N95.1 Menopausal and female climacteric states (principal)
CPT/HCPCS: 77080

== ENCOUNTER 2024-03-22 10:45 | Outpatient (CLI) | payer BC, SELFPAY ==
[2024-03-22 11:51] LABS: 25-OH Vitamin D, Total 31.7 ng/mL (30-100)
== END 2024-03-22 23:59 | disposition home or self-care (01) ==
LOC: LAB 10:46
PROVIDERS: PCP Internal Medicine Adolescent Medicine; Visit Provider Obstetrics & Gynecology
DX: M85.80 Other specified disorders of bone density and structure, unspecified site (principal); Z79.899 Other long term (current) drug therapy
CPT/HCPCS: 36415; 82306

== ENCOUNTER 2024-06-22 11:09 | Outpatient (CLI) | payer BC, SELFPAY ==
[2024-06-22 18:24] LABS: Adenovirus,PCR Not Detected (NotDetected); Bordetella Pertussis Not Detected (NotDetected); Chlamydophila Pneumoniae, PCR Not Detected (NotDetected); Coronavirus 19, PCR Not Detected (NotDetected); Coronavirus 229E Not Detected (NotDetected); Coronavirus NL63 Not Detected (NotDetected); Coronavirus OC43 Not Detected (NotDetected); Coronovirus HKU1,PCR Not Detected (NotDetected); Human Metapneumovirus Not Detected (NotDetected); Influenza A, PCR Not Detected (NotDetected); Influenza AH1, 2009 Not Detected (NotDetected); Influenza AH1, PCR Not Detected (NotDetected); Influenza AH3,PCR Not Detected (NotDetected); Influenza B, PCR Not Detected (NotDetected); Mycoplasma Pneumoniae, PCR Not Detected (NotDetected); Parainfluenza 1, PCR Not Detected (NotDetected); Parainfluenza 2, PCR Not Detected (NotDetected); Parainfluenza 3, PCR Not Detected (NotDetected); Parainfluenza 4, PCR Not Detected (NotDetected); Respiratory Syncytial Virus Not Detected (NotDetected)
[2024-06-22 23:59] LABS: Rhinovirus/Enterovirus Detected (NotDetected)
== END 2024-06-22 23:59 | disposition home or self-care (01) ==
LOC: LAB.DROPOF 06-23 11:10
PROVIDERS: PCP Nurse Practitioner Family; Visit Provider Nurse Practitioner Family
DX: J34.89 Other specified disorders of nose and nasal sinuses (principal)
CPT/HCPCS: 87581; 87632; 87635; 87798

== ENCOUNTER 2024-11-17 18:53 | Emergency (ER) | payer BC, SELFPAY ==
[2024-11-17 19:24] VITALS: BP 171/94; PULSE 94; RESP 20; TEMP 36.8; O2SAT 98; BMI 32.7
--- NOTE | 2024-11-17 19:28 | PC.NURSE ---
No obvious deformity noted Significant swelling to left lateral ankle noted. Leg elevated and ice pack applied
--- NOTE | 2024-11-17 19:30 | PC.NURSE ---
Pt awake alert and oriented Skin pink warm and dry Resp full and easy Speech clear and appropriate. Pedal pulses strong and equal.
--- NOTE | 2024-11-17 19:35 | XR_ITS ---
PROCEDURE INFORMATION: Exam: XR Left Tibia and Fibula Exam date and time: 11/17/2024 7:41 PM Age: 59 years old Clinical indication: Injury or trauma; Fall; Blunt trauma; Lower leg; Left; Additional info: Fall, deformity lateral TECHNIQUE: Imaging protocol: Radiologic exam of the left tibia and fibula. Views: 2 views. COMPARISON: None. FINDINGS: Bones/joints: Nondisplaced oblique fracture of the lateral malleolus. No other fracture. Soft tissues: Lateral ankle soft tissue swelling. IMPRESSION: 1. Nondisplaced oblique fracture of the lateral malleolus. 2. Lateral ankle soft tissue swelling.
--- NOTE | 2024-11-17 19:35 | XR_ITS ---
PROCEDURE INFORMATION: Exam: XR Left Ankle Exam date and time: 11/17/2024 7:41 PM Age: 59 years old Clinical indication: Injury or trauma; Fall; Blunt trauma; Ankle; Left; Additional info: Fall, deformity lateral TECHNIQUE: Imaging protocol: Radiologic exam of the left ankle. Views: 3 or more views. COMPARISON: CR XR FOOT LT MIN 3V 11/17/2024 7:41 PM FINDINGS: Bones/joints: Nondisplaced oblique fracture of the lateral malleolus. No other fracture. Large posterior and plantar surface calcaneal bone spurs. Soft tissues: Lateral soft tissue swelling. IMPRESSION: 1. Nondisplaced oblique fracture of the lateral malleolus. 2. Lateral soft tissue swelling.
--- NOTE | 2024-11-17 19:35 | XR_ITS ---
PROCEDURE INFORMATION: Exam: XR Left Foot Exam date and time: 11/17/2024 7:41 PM Age: 59 years old Clinical indication: Injury or trauma; Fall; Blunt trauma; Foot; Left; Additional info: Fall, dorsal midfoot pain TECHNIQUE: Imaging protocol: Radiologic exam of the left foot. Views: 3 or more views. COMPARISON: CR XR ANKLE LT MIN 3V 11/17/2024 7:41 PM FINDINGS: Bones/joints: No fracture or dislocation. Mild degenerative change at the 1st metatarsophalangeal joint. Posterior and plantar surface calcaneal bone spurs. Soft tissues: Normal. IMPRESSION: No evidence of a fracture in the foot.
[2024-11-17] MEDS: HYDROMORPHONE 2MG/ML SYRINGE 0.5 MG IV (19:45)
[2024-11-17] MEDS: KETOROLAC 30MG/ML VIAL 15 MG IV (19:46)
[2024-11-17] MEDS: ONDANSETRON 4MG/2ML VIAL 4 MG IV (19:46)
--- NOTE | 2024-11-17 20:23 | HMH.EDGENADL ---
Discharge Plan Disposition Patient Disposition: Home, Self-Care Prescriptions Prescriptions: New hydrocodone-acetaminophen 5-325 mg tablet 1 tab PO Q6H PRN (Reason: pain) Qty: 10 0RF ondansetron 4 mg tablet,disintegrating 4 mg PO Q6H PRN (Reason: nausea and vomiting) Qty: 10 0RF No Action lisinopril 40 mg tablet 40 mg PO DAILY Qty: 90 3RF Ozempic 1 mg/dose (4 mg/3 mL) pen injector SQ Patient Comments: INJECT 1 MG SUBCUTANEOUSLY ONCE WEEKLY bisoprolol fumarate 5 mg tablet 5 mg PO DAILY Patient Comments: TAKE ONE TABLET BY MOUTH EVERY DAY cyanocobalamin (vitamin B-12) 1,000 mcg/mL solution 1,000 mcg IM WEEKLY Patient Comments: INJECT 1 ML intramuscularly ONCE WEEKLY DIRECTED (DME) BD Luer-Yo Syringe 3 mL 25 gauge x 1 syringe See Rx Instructions .ROUTE .MEDSUPPLY Qty: 1 Patient Comments: USE DIRECTED FOR b12 injections Rx Instructions: As directed cholecalciferol (vitamin D3) 25 mcg (1,000 unit) capsule 25 mcg PO DAILY Qty: 30 6RF Citracal-D3 Plus Magnesium 250-40-125 mg-mg-unit tablet 2 tab PO DAILY Qty: 60 6RF ascorbate calcium (vitamin C) 500 mg tablet 500 mg PO DAILY multivitamin with iron [Daily Vitamin with Iron] Tablet 1 tab PO DAILY cetirizine 10 MG tablet 10 mg PO DAILY Referrals Follow up/Referrals: Kar Emerson DO [Staff Physician] - See instructions Yousif Chun MD [Primary Care Provider] - See instructions Activity Restrictions/Add. Instructions Additional Instructions/Restrictions: Call your family doctor to establish care for this visit to the emergency department and schedule follow-up within 48 hours to ensure improvement. If you have any worsening of your condition or any other concerning signs or symptoms, return to the emergency department or your primary care doctor for further evaluation. Print Language Print Language: Kinyarwanda Discharge ED Provider: Raheem Zabala General Adult HPI General Chief complaint: PAIN Stated complaint: AO 11/17/24 1830 injury left ankle Time Seen by Provider: 11/17/24 19:21 Mode of Arrival: Wheelchair Source of Information: Patient Limitations: No Limitations Description of Symptoms (Recalled from ER Triage Doc. by RN): Pt states she fell and now has left ankle pain and swelling History of Present Illness HPI narrative: Please note that above description of symptoms, in this electronic medical record under categorization of recalled from ER triage doctor by RN are reflective of an initial nursing assessment, however, is not reflective of my full history and physical exam that was personally taken and clarified. Consequentially, this preceding description of symptoms, which may include the patient's categorized chief complaint in the EMR, do not reflect my personal clinical impression, and the ultimate description of history of present illness and patient stated complaints should be deferred to this section of the note. Unless stated otherwise or congruent with this section of the note, additional signs, symptoms, or incongruence should be interpreted as inaccurate with my clinical impression. Related Data Home Medications ?Medication ?Instructions ?Recorded ?Confirmed cetirizine 10 mg tablet 10 mg PO DAILY Allergy symptoms 11/12/20 09/27/24 ascorbate calcium (vitamin C) 500 500 mg PO DAILY 11/26/20 09/27/24 mg tablet multivitamin with iron (Daily 1 tab PO DAILY 11/26/20 09/27/24 Vitamin with Iron tablet) bisoprolol fumarate 5 mg tablet 5 mg PO DAILY 03/22/24 09/27/24 cyanocobalamin (vitamin B-12) 1,000 mcg IM WEEKLY 03/22/24 09/27/24 1,000 mcg/mL injection solution syringe with needle 3 mL 25 gauge #1 ea 03/22/24 09/27/24 x 1 (BD Luer-Yo Syringe) semaglutide 1 mg/dose (4 mg/3 mL) mg SQ 05/25/24 09/27/24 subcutaneous pen injector (Ozempic) Previous Rx's ?Medication ?Instructions ?Recorded lisinopril 40 mg tablet 40 mg PO DAILY #90 tabs 11/25/23 calcium 2 tab PO DAILY #60 tabs 03/22/24 [id number]-Gv-[id number]-Ne-boron 250 mg-40 mg-125 unit tablet (Citracal-D3 Plus Magnesium) cholecalciferol (vitamin D3) 25 25 mcg PO DAILY #30 caps 03/22/24 mcg (1,000 unit) capsule hydrocodone 5 mg-acetaminophen 325 1 tab PO Q6H PRN pain #10 tabs 11/17/24 mg tablet ondansetron 4 mg disintegrating 4 mg PO Q6H PRN nausea and 11/17/24 tablet vomiting #10 tabs Allergies Allergy/AdvReac Type Severity Reaction Status Date / Time codeine Allergy Verified 09/27/24 10:09 [facility] Disclaimer: The information contained in this section may have been updated after the patient was seen, as this information can be updated by other users. Medical History Sinus bradycardia Chronic anemia Hypertension Surgical History H/O wisdom tooth extraction Hx of cholecystectomy H/O gastric bypass History of hysterectomy History of appendectomy Family History Brother Coronary artery disease 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 Smoking Status: Never smoker alcohol intake: never substance use type: denies use current occupational status: other Travel in the last 8 weeks: Inside the [place] Have you lived/traveled outside [place] in past 30 days?: No Contact w/someone who lives/traveled outside US past 30 days?: No Exposure to someone with infectious disease in past 14 days?: No Do you have a fever (greater than 100.4 F or 38 C)?: No Have you tested positive for COVID-19: No Exposed to someone with COVID-19 in past 14 days?: No Do you have a sore throat?: No Do you have a cough?: No Do you have any weakness?: No Do you have any diarrhea?: No Are you experiencing any unusual bleeding?: No Do you have any muscle aches/pain?: No Do you have any abdominal pain?: No Are you experiencing loss of taste or smell?: No Other Medical History Have you received the Flu Vaccine for this season: No Have you received the Pneumonia Vaccine: No ROS Obtained: Yes All systems reviewed & no additional complaints except as documented Physical Exam General General appearance: alert Head Head exam: atraumatic and normocephalic Eye Eye exam: Present normal appearance, PERRL and EOMI Neck Neck exam: Present normal inspection, full ROM and trachea midline Respiratory Respiratory exam: Absent respiratory distress, wheezes, stridor, accessory muscle use or prolonged expiratory phase Cardiovascular Cardiovascular exam: Present other (Pulses equal symmetric in upper and lower extremities) Abdominal Exam Abdominal exam: Present soft; Absent distention, tenderness or pulsatile mass Extremities Exam Extremities exam: Present edema and other (Edema, swelling, tenderness lateral aspect of ankle. Appears to be mild deformity. Neurovascularly intact, with exception of deep peroneal nerve.) Neurological Exam Neurological exam: Present alert, oriented X3 and CN II-XII intact; Absent motor sensory deficit Skin Skin exam: Present warm and dry; Absent diaphoresis or erythema Medical Decision Making Medical Records Medical records reviewed: Yes I reviewed the patient's medical records. Screening: Per USPSTF and CDC recommendations, given the prevalence of disease in our region, it is our hospital?s policy to screen for HIV and viral Hepatitis for all patients aged 18 and over and those with ongoing risk factors. Ramiro Inquiry Pt receiving controlled substance: No Ramiro was queried for this patient: No Vital Signs: 11/17/24 19:24 Temperature 98.2 F Temperature Source Oral Pulse Rate [Right Brachial] 94 H Respiratory Rate 20 Blood Pressure [Right Arm] 171/94 H Blood Pressure Mean [Right Arm] 119 Blood Pressure Source [Right Arm] Automatic Cuff Blood Pressure Position [Right Arm] Sitting 02 Sat by Pulse Oximetry 98 Oxygen Delivery Method Room Air Orders (Tests/Meds): ED MEDICATIONS Generic Name Dose Route Start Last Admin Trade Name Freq PRN Reason Stop Dose Admin Hydrocodone Bitart/Acetaminophen 1 tab 11/17/24 20:37 Hydrocodone/Apap 5/325 Mg Tablet PO 11/17/24 20:38 ONCE ONE Discontinued Medications Generic Name Dose Route Start Last Admin Trade Name Freq PRN Reason Stop Dose Admin Hydromorphone HCl 0.5 mg 11/17/24 19:31 11/17/24 19:45 Hydromorphone 2mg/Ml Syringe IV 11/17/24 19:32 0.5 mg ONCE ONE Administration Ketorolac Tromethamine 15 mg 11/17/24 19:31 11/17/24 19:46 Ketorolac 30mg/Ml Vial IV 11/17/24 19:32 15 mg ONCE ONE Administration Ondansetron HCl 4 mg 11/17/24 19:31 11/17/24 19:46 Ondansetron 4mg/2ml Vial IV 11/17/24 19:32 4 mg ONCE ONE Administration ORDERS Category Date Time Status Ankle XR - Left minimum 3 Views [XR ankle LT min 3V] Exams 11/17/24 19:35 Completed Stat Fibula/tibia XR left 2 views [XR tibia fibula LT 2V] Exams 11/17/24 19:35 Completed Stat Foot XR left minimum 3 views [XR foot LT min 3V] Stat Exams 11/17/24 19:35 Completed CBC w/Auto Diff [Complete Blood Count Auto Diff] Stat Lab 11/17/24 19:55 Received CMP [Comprehensive Metabolic Panel] Stat Lab 11/17/24 19:55 Received HIV Combo Routine Lab 11/17/24 19:55 Received Hepatitis C Ab Qual. W/ RFX Routine Lab 11/17/24 19:55 Received PT INR [Prothrombin Time INR] Stat Lab 11/17/24 19:55 Received PTT [Activated Partial Thrombo Time] Stat Lab 11/17/24 19:55 Received Medical Decision Narrative: This is a 59-year-old female presenting with left ankle injury. She fell about an hour prior to arrival. Slipped, left foot went behind her and she landed on her heel and forcibly plantarflexed her left ankle. [place] a loud pop anteriorly and laterally. Largely unable to bear weight since that time. Pain is moderate to severe in intensity, made worse with bearing weight. History was obtained via conversation with patient. On arrival, patient hemodynamically stable, alert, oriented x4, appropriate, GCS 15, moving all extremities spontaneously, pupils equal and reactive to light. Full physical exam performed and significant for significant amount of swelling at lateral malleolus. Deep peroneal nerve sensation loss. Motor is intact, sensation intact otherwise. Pulses equal and symmetric in DPs. Compartments are soft and no open injury. Differential includes fracture, sprain, strain, neurovascular injury, less likely to be dislocation, compartment syndrome, among others. Patient given ice pack for comfort. X-rays were ordered and independently interpreted, she does have distal tibial fracture that appears to be distal to the syndesmosis. No proximal injuries. Patient placed in walking boot. Patient requires orthopedic bracing due to weakness or deformity requiring stabilization. The use of this brace will benefit the patient's functionality and prevent further injury. Patient able to ambulate with walking boot, but with significant pain. Given crutches as well. Also given first dose of [place] and rested [place] was sent to the pharmacy with Chauncey. Because patient at baseline without signs or symptoms of clinical decompensation, deemed appropriate for discharge. Results were relayed to patient who voiced understanding and were agreeable to outpatient management and follow up. I discussed my clinical impression with patient and answered all questions. At this time, the evidence for any other entities in the differential is insufficient to warrant any further testing or ED observation. This was explained as well. Advisory was given that persistent or worsening symptoms require further evaluation. I confirmed the understanding of this discussion. Supervising Producer disclaimer Much of this encounter note is an electronic library sales consultant spoken language to printed text. Electronic library sales consultant of the spoken language may permit errors. Although I have reviewed the note, some errors may still exist. Critical Care Critical Care Time Critical Care Time: No
[2024-11-17 20:32] LABS: Basophils % 0.4 % (0.1-2.0); Eosinophils # 0.2 K/mm3 (0.0-0.4); Eosinophils % 1.5 % (0.1-12.0); Hemoglobin 12.5 g/dL (12.2-16.2); Lymphocytes # 2.5 K/mm3 (0.7-4.5); Lymphocytes % 25.4 % (10-50); Mean Corpuscular HGB Conc 32.1 g/dL (31.8-35.4); Mean Corpuscular Hemoglobin 27.8 pg (27.0-31.2); Mean Corpuscular Volume 86.9 fl (81-99); Mean Platelet Volume 10.1 fl (7.4-10.4); Monocytes # 0.7 K/mm3 (0.1-1.0); Monocytes % 7.4 % (1.7-9.3); Neutrophils # 6.3 K/mm3 (1.8-7.8); Platelet Count 354 K/mm3 (142-424); Red Blood Count 4.49 M/mm3 (4.20-5.40); White Blood Count 9.8 K/mm3 (4.8-10.8)
[2024-11-17 20:39] LABS: Albumin Level 4.3 g/dl (3.5-5.0); Chloride 103 mmol/L (98-107); Sodium 140 mmol/L (136-145)
[2024-11-17 20:40] VITALS: BP 182/93; PULSE 88; RESP 20; TEMP 36.8; O2SAT 99
[2024-11-17] MEDS: HYDROCODONE/APAP 5/325 MG TABLET 1 TAB PO (20:40)
[2024-11-17 20:41] LABS: Blood Urea Nitrogen 21 mg/dl (7-17); Creatinine Clearance Estimated 86 mL/min (50-200); Estimated Glomerular Filt Rate 64 ml/min (>60); GFR (African American) 78 ML/MIN (>60)
[2024-11-17 20:42] LABS: Alanine Aminotransferase 26 U/L (12-78); Albumin/Globulin Ratio 1.3 (1.1-1.8); Alkaline Phosphatase 122 U/L (38-126); Aspartate Amino Transferase 42 U/L (14-36); Bilirubin,Total 0.2 mg/dl (0.2-1.3); Calcium 9.5 mg/dl (8.4-10.2); Carbon Dioxide 30 mmol/L (22.0-30.0); Globulin 3.2 g/dL (1.3-3.2); Glucose 98 mg/dl (74-100); Total Protein,Serum 7.5 g/dl (6.3-8.2)
--- NOTE | 2024-11-17 20:42 | PC.NURSE ---
Patient provided with a L size walking boot and also a set of crutches and was able to demonstrate use of crutches with no discomfort noted.
[2024-11-17 20:45] LABS: Activated Partial Thrombo Time 25.4 seconds (22.8-30.6); INR 0.98 (0.9-1.1)
[2024-11-17 22:18] LABS: HIV Combo NEGATIVE (Negative)
[2024-11-17 22:26] LABS: Hepatitis C Ab Qual. W/ RFX NEGATIVE (Negative)
== END 2024-11-17 20:48 | disposition home or self-care (01) ==
PROVIDERS: Emergency Provider Emergency Medicine; PCP Internal Medicine Adolescent Medicine
DX: S82.892A Other fracture of left lower leg, initial encounter for closed fracture (principal); M25.572 Pain in left ankle and joints of left foot; M79.672 Pain in left foot; M79.605 Pain in left leg; W01.0XXA Fall on same level from slipping, tripping and stumbling without subsequent striking against object, initial encounter; Y93.89 Activity, other specified; Y92.9 Unspecified place or not applicable
CPT/HCPCS: 73590; 73610; 73630; 80053; 85025; 85610; 85730; 86803; 87389; 96374; 96375; 99283; J1171; J1885; J2405

== ENCOUNTER 2024-12-14 13:23 | Outpatient (CLI) | payer BC, SELFPAY ==
--- NOTE | 2024-12-14 13:26 | XR_ITS ---
FINAL REPORT CLINICAL HISTORY: fracture..pain COMPARISON: 11/17/2024 FINDINGS: AP, oblique, and lateral views of the left ankle were obtained. There has been interval healing of the previously seen nondisplaced fracture of the lateral malleolus. No acute osseous abnormality identified. There is mild osteopenia. Mild degenerative joint disease is noted. There is no acute soft tissue abnormality. IMPRESSION: Healing lateral malleolar fracture. Reviewed, Interpreted and Dictated by Jana Hannon MD Transcribed by Tricia Ibarra Authenticated and [facility]
== END 2024-12-14 23:59 | disposition home or self-care (01) ==
LOC: RAD 13:24
PROVIDERS: PCP Internal Medicine Adolescent Medicine; Visit Provider Physician Assistant
DX: M25.572 Pain in left ankle and joints of left foot (principal); S82.892A Other fracture of left lower leg, initial encounter for closed fracture
CPT/HCPCS: 73610

== ENCOUNTER 2025-01-05 08:59 | Outpatient (CLI) | payer BC, SELFPAY ==
--- NOTE | 2025-01-05 09:02 | XR_ITS ---
FINAL REPORT TECHNIQUE: Left ankle 3 views CLINICAL HISTORY: lt ankle pain COMPARISON: 12/14/2024 FINDINGS: LEFT ANKLE: 3 images of the left ankle were obtained. A mildly displaced fracture of the lateral malleolus is once again identified, similar to the prior exam of 12/14/2024. No new fractures are identified. The joint spaces are intact. There is no soft tissue abnormality identified. A moderate Serenity's deformity is present, as well as a plantar calcaneal spur. IMPRESSION: Mildly displaced fracture of the lateral malleolus, stable since the prior exam of 12/14/2024. Reviewed, Interpreted and Dictated by Christian Talbot MD Transcribed by Keiry Knutson Authenticated and [facility]
--- NOTE | 2025-01-05 09:02 | XR_ITS ---
FINAL REPORT TECHNIQUE: Left foot 3 views CLINICAL HISTORY: lt foot pain COMPARISON: 11/17/2024 FINDINGS: LEFT FOOT: 3 images of the left foot were obtained. There is no evidence of fracture or dislocation. Diffuse osteopenia is once again noted. The joint spaces are intact. There is no soft tissue abnormality identified. IMPRESSION: No acute bony abnormality. Reviewed, Interpreted and Dictated by Christian Talbot MD Transcribed by eKiry Knutson Authenticated and [facility]
== END 2025-01-05 23:59 | disposition home or self-care (01) ==
LOC: RAD 09:00
PROVIDERS: PCP Internal Medicine Adolescent Medicine; Visit Provider Physician Assistant
DX: M25.572 Pain in left ankle and joints of left foot (principal); M79.672 Pain in left foot; S82.832A Other fracture of upper and lower end of left fibula, initial encounter for closed fracture; S82.892A Other fracture of left lower leg, initial encounter for closed fracture
CPT/HCPCS: 73610; 73630

== ENCOUNTER 2025-02-02 09:30 | Outpatient (CLI) | payer BC, SELFPAY ==
--- NOTE | 2025-02-02 09:33 | XR_ITS ---
FINAL REPORT CLINICAL HISTORY: lt ankle pain fx oct 2024 checking for bone growth no sx COMPARISON: 01/05/2025 FINDINGS: Three views of the left ankle show an oblique fracture of the lateral malleolus. Callus formation is noted. Fracture line is less distinct from the previous exam. There is osteopenia. Mild degenerative changes are noted. There are large calcaneal spurs. IMPRESSION: Further healing of lateral malleolar fracture. Reviewed, Interpreted and Dictated by Janneth Johnson MD Transcribed by Tricia Ibarra Authenticated and [facility]
== END 2025-02-02 23:59 | disposition home or self-care (01) ==
LOC: RAD 09:31
PROVIDERS: PCP Internal Medicine Adolescent Medicine; Visit Provider Physician Assistant Surgical
DX: M25.572 Pain in left ankle and joints of left foot (principal); S82.832A Other fracture of upper and lower end of left fibula, initial encounter for closed fracture
CPT/HCPCS: 73610

== ENCOUNTER 2025-02-07 15:36 | Outpatient (CLI) | payer BC, SELFPAY ==
--- NOTE | 2025-02-07 15:38 | MM_ITS ---
PROCEDURE INFORMATION: Exam: MG Bilateral Screening 3D Mammography Exam date and time: 02/07/2025 3:46 PM Age: 59 years old Clinical indication: Screening examination TECHNIQUE: Imaging protocol: Bilateral Screening tomosynthesis and 2D mammography including computer-aided detection (CAD) when performed. COMPARISON: 1. MG MM DIG SCREENING MAMM BI W/CAD 01/15/2024 1:54 PM 2. MG MM DIG SCREENING MAMM BI W/CAD 01/12/2023 8:17 AM FINDINGS: MAMMOGRAPHY: Breast composition: There are scattered areas of fibroglandular density. Mass: No suspicious masses. Architectural distortion: None. Calcifications: No suspicious calcifications. Asymmetric density: None. Skin thickening: None. Axillary adenopathy: None. IMPRESSION: No mammographic evidence of malignancy. Annual screening is recommended unless otherwise clinically indicated. ASSESSMENT: BI-RADS Category 1: Negative.
== END 2025-02-07 23:59 | disposition home or self-care (01) ==
LOC: RAD 15:36
PROVIDERS: PCP Internal Medicine Adolescent Medicine; Visit Provider Internal Medicine Adolescent Medicine
DX: Z12.31 Encounter for screening mammogram for malignant neoplasm of breast (principal)
CPT/HCPCS: 77063; 77067